=== PATIENT | male | born 1975 | race Caucasian/White ===

== ENCOUNTER 2022-01-04 21:48 | Emergency (ER) | payer OTHER ==
[2022-01-04] MEDS ORDERED: Zofran 4 MG/2 ML VIAL IV ONE (21:55)
[2022-01-04] MEDS ORDERED: Sodium Chloride 0.9% 1000 ML 1,000 ML IV STA (21:55)
[2022-01-04 22:12] LABS: Absolute Neutrophil Ct (ANC) 7.14 x10^3/uL (1.4-6.9); Basophil (Absolute #) 0.04 x10^3/uL (0-0.4); Eosinophil (Absolute #) 0 x10^3/uL (0-0.5); Hematocrit 35.3 % (42-50); Hemoglobin 11.7 g/dL (12.5-18.0); Lymphocyte (Absolute #) 1.52 x10^3/uL (1.0-4.6); Lymphocytes % 16.6 % (24.0-44.0); Mean Cell Volume 94.1 fL (78-100); Mean Corpuscular Hemoglobin 31.2 pg (26-32); Mean Corpuscular Hgb Concent. 33.1 g/dL (32-36); Mean Platelet Volume 8.1 fL (7.5-11.0); Monocyte (Absolute #) 0.42 x10^3/uL (0.0-1.3); Monocytes % 4.6 % (0.0-12.0); Neutrophil % 77.7 % (36.0-66.0); Platelet Count 266 x10^3/uL (150-450); Red Blood Count 3.75 x10^6/uL (4.1-5.6); Red Cell Distribution Width 12.9 % (11.5-14.0); White Blood Count 9.2 x10^3/uL (4.0-10.5)
[2022-01-04 22:14] VITALS: O2SAT 99
[2022-01-04] MEDS ORDERED: Sodium Chloride 0.9% 1000 ML 1,000 ML ONE (22:16)
[2022-01-04] MEDS ORDERED: Zofran 4 MG/2 ML VIAL ONE (22:16)
[2022-01-04 22:24] LABS: ALBUMIN 4.5 g/dL (3.5-5.0); ALKALINE PHOSPHATASE 220 U/L (38-126); AMYLASE 87 U/L (30-110); ANION GAP 25.2 MEQ/L (5-15); BLOOD UREA NITROGEN 24 mg/dL (9-20); CHLORIDE 95 mmol/L (98-107); Calcium 9.9 mg/dL (8.4-10.2); Carbon Dioxide 20 mmol/L (22-30); Creatinine 1 1.12 mg/dL (0.66-1.25); EST GLOMERULAR FILTRATION RATE > 60.0 ML/MIN; Glucose 305 mg/dL (74-106); Potassium 4.6 mmol/L (3.5-5.1); SGOT/AST 30 U/L (17-59); SGPT/ALT 29 U/L (0-50); SODIUM 136 mmol/L (137-145); Total Protein 8.1 g/dL (6.3-8.2)
--- NOTE | 2022-01-04 22:28 | ERPHSYRPT ---
- History of Present Illness Time Seen by Provider: 01/04/22 22:23 Source: patient, EMS Exam Limitations: no limitations Patient Subjective Stated Complaint: vomiting Triage Nursing Assessment: Patient alert and oriented but because very drowsy between vomiting episode. Vomiting coffee ground emesis. Skin color pale. Lung sounds clear throughout. Bowel sounds present x 4. LBM 01/03/22. Denies diarrhea. Physician History: Patient is 46-year-old male with significant past medical history of type 1 diabetes mellitus was recently admitted at [facility] with probable diagnosis of pneumonia where patient signed out AGAINST MEDICAL ADVICE from the hospital. Patient was walking on the side of the road and was waiting for somebody to pick him up to take him home but he started getting more and more nauseous and started having vomiting so he called 911 and patient was brought into the [facility] emergency room via ambulance for further evaluation. When patient came to the emergency room patient was alert awake oriented but having a multiple episode of nausea and vomiting. Patient was also getting lethargic and drowsy. Patient denies any other symptoms including chest pain shortness of breath abdominal pain. Timing/Duration: today Severity: moderate Associated Symptoms: vomiting Allergies/Adverse Reactions: No Known Drug Allergies Allergy (Unverified 01/04/22 21:49) Home Medications: Aspirin [Adult Low Dose Aspirin EC] 81 mg PO DAILY 01/04/22 [History] Atorvastatin Calcium 40 mg PO DAILY 01/04/22 [History] Citalopram Hydrobromide 20 mg* [ceLEXa 20 MG] 20 mg PO DAILY 01/04/22 [History] Divalproex Sodium [Divalproex Sodium ER] 250 mg PO BID 01/04/22 [History] Travel Risk - International Travel Have you traveled outside of the country in past 3 weeks: No - Coronavirus Screening Symptoms: Vomiting/Diarrhea Close contact with a COVID-19 positive Pt in past 14-21 Days: No - Vaccine Status Have you recieved a Covid-19 vaccination: Yes [employer]: Moderna - Vaccination Dates Date of 2cond Vaccination (if applicable): 2021 - Review of Systems Constitutional: Lethargy, No Fever, No Chills Eyes: No Symptoms Ears, Nose, & Throat: No Symptoms Respiratory: No Cough, No Dyspnea Cardiac: No Chest Pain, No Edema, No Syncope Abdominal/Gastrointestinal: Nausea, Vomiting, No Abdominal Pain, No Diarrhea Genitourinary Symptoms: No Dysuria Musculoskeletal: No Back Pain, No Neck Pain Skin: No Rash Neurological: No Dizziness, No Focal Weakness, No Sensory Changes Psychological: No Symptoms Endocrine: No Symptoms All Other Systems: Reviewed and Negative - Past Medical History Pertinent Past Medical History: Yes Neurological History: Seizures ENT History: No Pertinent History Respiratory History: COPD, Sleep Apnea Endocrine Medical History: Diabetes Type I Musculoskeletal History: Degenerative Disk Disease GI Medical History: No Pertinent History History: No Pertinent History Psycho-Social History: Anxiety, Bipolar, Depression Male Reproductive Disorders: No Pertinent History - Past Surgical History Past Surgical History: Yes Neuro Surgical History: No Pertinent History Cardiac: No Pertinent History Respiratory: No Pertinent History Gastrointestinal: No Pertinent History Genitourinary: No Pertinent History Musculoskeletal: Amputation Male Surgical History: No Pertinent History Other Surgical History: 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 - Social History Smoking Status: Current every day smoker How long have you smoked: 34 years Drug Use: none Patient Lives Alone: No - Nursing Vital Signs Nursing Vital Signs: Initial Vital Signs Temperature 98.1 F 01/04/22 22:00 Pulse Rate 108 H 01/04/22 22:00 Respiratory Rate 16 01/04/22 22:00 Blood Pressure 168/114 01/04/22 22:00 O2 Sat by Pulse Oximetry 99 01/04/22 22:00 Pain Scale Pain Intensity 0 - Physical Exam General Appearance: no apparent distress, alert Eye Exam: PERRL/EOMI, eyes nml inspection Ears, Nose, Throat Exam: normal ENT inspection, TMs normal, pharynx normal, moist mucous membranes Neck Exam: normal inspection, non-tender, supple, full range of motion Respiratory Exam: normal breath sounds, lungs clear, No respiratory distress Cardiovascular Exam: regular rate/rhythm, normal heart sounds, normal peripheral pulses Gastrointestinal/Abdomen Exam: soft, normal bowel sounds, No tenderness, No mass Back Exam: normal inspection, normal range of motion, No CVA tenderness, No vertebral tenderness Extremity Exam: normal inspection, normal range of motion, pelvis stable Neurologic Exam: alert, oriented x 3, cooperative, normal mood/affect, nml cerebellar function, nml station & gait, sensation nml, No motor deficits Skin Exam: normal color, warm, dry, No rash Lymphatic Exam: No adenopathy SpO2: 99 - Course Nursing assessment & vital signs reviewed: Yes - Radiology Exams Chest X-ray Interpretation: Reviewed by me, Negative Ordered Tests: Active Orders 24 hr Category Date Time Status CHEST 1 VIEW (PORTABLE) Stat Exams 01/04/22 21:57 Taken AMYLASE Stat Lab 01/04/22 22:10 Completed CBC W DIFF Stat Lab 01/04/22 22:10 Completed CMP Stat Lab 01/04/22 22:10 Completed UA W/RFX CULTURE Stat Lab 01/04/22 Ordered Urine Triage Profile Stat Lab 01/04/22 21:56 Ordered Medication Summary Discontinued Medications Generic Name Dose Route Start Last Admin Trade Name Charlesq PRN Reason Stop Dose Admin Sodium Chloride 1,000 mls @ 999 mls/hr 01/04/22 21:55 01/04/22 22:29 Sodium Chloride 0.9% 1000 Ml IV 01/04/22 22:55 999 mls/hr .Q1H1M STA Administration Sodium Chloride Confirm 01/04/22 22:16 Sodium Chloride 0.9% 1000 Ml Administered 01/04/22 22:17 Dose 1,000 mls @ ud .ROUTE .STK-MED ONE Labetalol HCl 20 mg 01/04/22 23:09 Labetalol Hcl 20 Mg/4 Ml Disp.Syringe IV 01/04/22 23:10 STAT ONE Ondansetron HCl 4 mg 01/04/22 21:55 01/04/22 22:29 Ondansetron Hcl 4 Mg/2 Ml Vial IV 01/04/22 21:56 4 mg STAT ONE Administration Ondansetron HCl Confirm 01/04/22 22:16 Ondansetron Hcl 4 Mg/2 Ml Vial Administered 01/04/22 22:17 Dose 4 mg .ROUTE .STK-MED ONE Lab/Rad Data: Laboratory Result Diagrams 01/04/22 22:10 01/04/22 22:10 Laboratory Results 01/04/22 01/04/22 Range/Units 22:10 22:10 WBC 9.2 (4.0-10.5) x10^3/uL RBC 3.75 L (4.1-5.6) x10^6/uL Hgb 11.7 L (12.5-18.0) g/dL Hct 35.3 L (42-50) % MCV 94.1 (78-100) fL MCH 31.2 (26-32) pg MCHC 33.1 (32-36) g/dL RDW 12.9 (11.5-14.0) % Plt Count 266 (150-450) x10^3/uL MPV 8.1 (7.5-11.0) fL Gran % 77.7 H (36.0-66.0) % Immature Gran % (Auto) 0.7 H (0.00-0.4) % Nucleat RBC Rel Count 0.0 (0.00-0.1) % Eos # (Auto) 0 (0-0.5) x10^3/uL Immature Gran # (Auto) 0.06 H (0.00-0.03) x10^3u/L Absolute Lymphs (auto) 1.52 (1.0-4.6) x10^3/uL Absolute Monos (auto) 0.42 (0.0-1.3) x10^3/uL Absolute Nucleated RBC 0.00 (0.00-0.01) x10^3u/L Lymphocytes % 16.6 L (24.0-44.0) % Monocytes % 4.6 (0.0-12.0) % Eosinophils % 0.0 (0.00-5.0) % Basophils % 0.4 (0.0-0.4) % Absolute Granulocytes 7.14 H (1.4-6.9) x10^3/uL Basophils # 0.04 (0-0.4) x10^3/uL Sodium 136 L (137-145) mmol/L Potassium 4.6 (3.5-5.1) mmol/L Chloride 95 L (98-107) mmol/L Carbon Dioxide 20 L (22-30) mmol/L Anion Gap 25.2 H (5-15) MEQ/L BUN 24 H (9-20) mg/dL Creatinine 1.12 (0.66-1.25) mg/dL Estimated GFR > 60.0 ML/MIN Glucose 305 H (74-106) mg/dL Calcium 9.9 (8.4-10.2) mg/dL Total Bilirubin 0.40 (0.2-1.3) mg/dL AST 30 (17-59) U/L ALT 29 (0-50) U/L Alkaline Phosphatase 220 H (38-126) U/L Serum Total Protein 8.1 (6.3-8.2) g/dL Albumin 4.5 (3.5-5.0) g/dL Amylase 87 (30-110) U/L - Progress Progress: improved, re-examined Progress Note: 01/04/22 23:13 Patient is feeling much better. Nausea is improved. Able to keep the fluid down. Patient was given 20 mg labetalol to bring the blood pressure down. As soon as patient reaches home he is advised to put the insulin pump back on. 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 The patient was counseled regarding Diagnosis,Lab results, Imaging studies, need for follow up and when to return to the Emergency Room. Prescriptions given: Discharge Note I have spoken with the patient and/or caregivers. I have explained the patient's condition, diagnosis and treatment plan based on the information available to me at this time. I have answered the patient's and/or caregiver's questions and addressed any concerns. The patient and/or caregivers have as good understanding of the patient's diagnosis, condition and treatment plan as can be expected at this point. The vital signs have been stable. The patient's condition is stable and appropriate for discharge from the emergency department. The patient will pursue further outpatient evaluation with the primary care physician or other designated or consulting physician as outlined in the discharge instructions. The patient and/or caregivers are agreeable to this plan of care and follow-up instructions have been explained in detail. The patient and/or caregivers have received these instruction. The patient/and or caregivers are aware that any significant change in condition or worsening of symptoms should prompt an immediate return to this or the closest emergency department or call 911. ANITHACHIDI PEREIRA was seen on 01/04/22 n the Emergency Room. At that time you were treated for an emergent condition, during your visit Laboratory, Radiology and/or other procedures may have been ordered. It is very important that you follow-up with your Primary Care Physician NO FAMILY DOCTOR within the next 24-48 hours to review your Emergency Room visit and the final results of testing that was ordered. Some test results such as Urine Cultures, Blood Cultures, and other cultures if ordered will not be finalized for 24-48 hours. If you do not have a Primary Care Provider please call the medical records department at [phone] to obtain a copy of your results or you may sign into our patient portal to obtain these results by visiting us @ [email or web address] and completing the following steps: 1. Click on the Patient Portal link 2. Click the Patient Self Enrollment Link to complete the enrollment form and entering your 3. Once the enrollment form is completed you will receive an email with a temporary ID and password at the email address you provided. 4. Next choose a user name and password. Your user name must be at least 4 characters long and your password must be at least 4 characters long. 5. Choose a security question from the list and provide your answer to the question. If you already have signed into the Health Portal you may access your Health Care Information 29/12 by the following steps: 1. Login to our website @ [email or web address] 2. Enter your original user name and password. FAQS The [facility] Health Portal is an online tool that contains your Lab Results, Radiology Reports, Visit History, Discharge Instructions and Health Summary Lab and Radiology Results will not be available for 72 hours on the portal. The Portal is a secure site, passwords are encryted and URLs are re-written so they cannot be copied and pasted. You and authorized family members are the only ones who can access your Portal. Also there is a timeout feature that protects your information if you leave the Portal page open. If you have technical difficulty please use the Contact Us link on the page this will allow you to submit any questions you have regarding the Portal or you may contact the Medical Record Department at [phone]. Prescriptions: Ondansetron ODT 4 MG [Zofran Odt 4 mg] 4 mg PO Q6H PRN PRN #20 tablet PRN Reason: Nausea/Vomiting
[2022-01-04] MEDS ORDERED: TRANDATE 20 MG/4 ML SYRINGE IV ONE ×2 (23:09→23:13)
[2022-01-04 23:50] VITALS: BP 165/97; PULSE 97
--- NOTE | 2022-01-05 07:30 | XRAY ---
Indication: Vomiting. Pneumonia. Comparison: None Portable chest inflated and clear. Heart and mediastinal structures within normal limits. Bony thorax intact with mild osteopenia and old left 3-7 rib fractures. Impression: Nonacute chest.
== END 2022-01-04 23:53 | disposition home or self-care (01) ==
LOC: ED 21:48
DX: R11.2 Nausea with vomiting, unspecified (principal); E10.622 Type 1 diabetes mellitus with other skin ulcer; L98.499 Non-pressure chronic ulcer of skin of other sites with unspecified severity; R40.0 Somnolence; J44.9 Chronic obstructive pulmonary disease, unspecified; Z72.0 Tobacco use
CPT/HCPCS: 36000; 36415; 71045; 80053; 82150; 85025; 96374; 99284; 99291; J2405